=== PATIENT | male | born 1990 | race Caucasian/White ===

== ENCOUNTER 2019-05-23 21:17 | Emergency (ER) | payer OTHER ==
[~2019-05-23] VITALS: Ht 160 cm; Wt 65.3 kg
[2019-05-23 21:25] VITALS: BP 129/86
--- NOTE | 2019-05-23 21:29 | NUR ---
PT AMBULATED TO [facility], JN.
--- NOTE | 2019-05-23 21:41 | NUR ---
PT AMBULATED TO CHAIR A
--- NOTE | 2019-05-23 21:45 | NUR ---
PATIENT HERE REQUESTING SHINGLES VACCINE. PATIENT GCS 15, AAOX4. STATES CLASSMATES WAS HAD OUTBREAK. PATIENT DENIES ANY SORES, NO PAIN. PATIENT IS NOT EXHIBITING ANY SYMPTOMS, JUST REQUESTED VACCINE. LILIYA REYNA EVALUATING PATIENT, INFORMED PATIENT CANNOT RECEIVE VACCINE, EDUCATION PROVIDED BY LILIYA REYNA, PATIENT AGREES AND VERBALIZES UNDERSTANDING
--- NOTE | 2019-05-23 21:49 | NUR ---
Patient discharged with v/s stable. Written and verbal after care instructions given and explained. Patient verbalized understanding. Ambulatory with steady gait. All questions addressed prior to discharge. Advised to follow up with PMD.
[2019-05-23 21:50] VITALS: BP 129/86
== END 2019-05-23 21:50 | disposition home or self-care (01) ==
LOC: MED 21:17
DX: Z23 Encounter for immunization (principal); B02.9 Zoster without complications
CPT/HCPCS: 99281